=== PATIENT | female | born 1980 | race Caucasian/White ===

== ENCOUNTER 2020-05-10 14:23 | Emergency (ER) | payer OTHER ==
[2020-05-10] MEDS ORDERED: CYCLOBENZAPRINE10 MG PO (18:58)
== END 2020-05-10 19:25 | disposition home or self-care (01) ==
LOC: ER1 14:23
DX: S39.012A Strain of muscle, fascia and tendon of lower back, initial encounter (principal); Z88.0 Allergy status to penicillin; V49.9XXA Car occupant (driver) (passenger) injured in unspecified traffic accident, initial encounter
CPT/HCPCS: 72131; 96372; 99283; J1885